=== PATIENT | male | born 1995 | race Caucasian/White ===

== ENCOUNTER 2018-12-01 01:54 | Emergency (ER) | payer OTHER ==
--- NOTE | 2018-12-01 02:10 | ER Report ---
History and Physical Time Seen By MD: 02:04 Hx. of Stated Complaint: THREW UP A LOT OF BLOOD. HAS BEEN DRINKING. SAME THING HAPPENED A WEEK OR SO AGO AND ONCE IN [place]. EVERYTIME HE HAS BEEN DRINKING HPI/ROS CHIEF COMPLAINT: Hematemesis and epigastric pain HISTORY OF PRESENT ILLNESS: This is a 23-year-old male. He has been drinking heavily throughout the weekend. Came in because he was worried about throwing up a large amount of bright red blood tonight. This is happened on 2 other occasions when he has been drinking. One a few years ago, the last a few weeks ago. This seemed worse than usual. The others were not associated with pain that he remembers. He does state that he does drink heavily on the weekends and has an alcohol problem. No known history of ulcer disease and has not had this worked up. States that his mother who is a nurse practitioner has been recommending that he see a doctor for this. He denies any fevers or chills. No change in his stools with diarrhea, constipation, melena or blood in the stools. He has had normal urination without any blood in the urine. He does have significant acid reflux which seems to come and go but has not taken any medication for this as of yet. Allergies: Coded Allergies: No Known Drug Allergies (Unverified , 12/01/18) Home Meds Active Scripts Sucralfate (CARAFATE) 1 Gm Tablet, 1 GM PO QID, #120 TAB 0 Refills Prov:YARELIS BUCK MD 12/01/18 Reviewed Nurses Notes: Yes Hx Substance Use Disorder: No Hx Alcohol Use: Yes (SOCIAL) Constitutional Vital Sign - Last 24 Hours 12/01/18 12/01/18 12/01/18 12/01/18 01:54 01:58 01:58 02:00 Temp 98.3 Pulse ??? 142 Resp 20 B/P (MAP) 183/111 (135) 172/114 172/114 (133) Pulse Ox 97 O2 Delivery Room Air 12/01/18 12/01/18 12/01/18 12/01/18 02:09 02:24 02:30 02:39 Pulse 131 117 119 Resp 15 12 B/P (MAP) 146/114 (125) Pulse Ox 94 87 12/01/18 12/01/18 12/01/1812/01/19 02:54 03:00 03:09 03:14 Pulse 112 113 117 Resp 9 14 11 B/P (MAP) ???/??? (1665) Pulse Ox 92 94 12/01/18 12/01/18 12/01/18 12/01/18 03:44 03:59 04:00 04:14 Pulse ? B/P (MAP) ???/??? (1665) 12/01/18 12/01/18 12/01/18 04:29 04:36 04:44 Pulse ? B/P (MAP) 135/98 (110) Intake and Output 11/30/18 11/30/18 12/01/18 15:00 23:00 07:00 Intake Total 1000 ml Balance 1000 ml Physical Exam General Appearance: The patient is alert. He is intoxicated, very aches use. He is tachycardic. Blood pressure is elevated as well. Eyes: Pupils are equal, round. Reactive to light. No pallor, injection or icterus. Extraocular movements are intact. ENT: Mucous membranes are moist. Normal oral mucosa. Posterior oropharynx is normal. No sign of bleeding in the oropharynx. Neck: Supple and non tender. No lymphadenopathy. Respiratory: Lungs are clear to auscultation. Cardiovascular: Tachycardia but appears a regular sinus tachycardia. No murmurs, gallops or rubs. Normal capillary refill. Gastrointestinal: Abdomen is soft, he has tenderness in the epigastric area. Nondistended. No rebound or guarding. No masses or organomegaly. Normal active bowel sounds. No costovertebral angle tenderness with percussion. Neurological: Alert and oriented x3. No focal neurologic deficits other than the intoxication Skin: Warm and dry. No rashes. No bruising. Musculoskeletal: No tenderness in palpation of the back and spine DIFFERENTIAL DIAGNOSIS: After history and physical exam, differential diagnosis was considered for patient with hematemesis, 2 prior episodes, all of alcohol use, suspect likely gastritis versus ulcer disease. Medical Decision Making Data Points Result Diagram: 12/01/18 0333 12/01/18 0207 Laboratory Hematology Test 12/01/18 00:00 12/01/18 02:07 12/01/18 03:33 Helicobacter pylori IgG Antibody Negative (NEGATIVE) Prothrombin Time 12.1 seconds (12.0-14.4) Prothromb Time International Ratio 0.90 Activated Partial Thromboplast Time 30 seconds (23-35) Sodium Level 146 mmol/L (137-145) Potassium Level 3.9 mmol/L (3.5-5.0) Chloride Level 102 mmol/L (98-107) Carbon Dioxide Level 26 mmol/L (22-30) Blood Urea Nitrogen 14 mg/dl (9-21) Creatinine 1.00 mg/dl (0.66-1.25) Glomerular Filtration Rate Calc > 60.0 Random Glucose 103 mg/dl (75-110) Calcium Level 10.0 mg/dl (8.4-10.2) Total Bilirubin 0.7 mg/dl (0.2-1.3) Aspartate Amino Transf (AST/SGOT) 57 U/L (0-35) Alanine Aminotransferase (ALT/SGPT) 77 U/L (0-56) Alkaline Phosphatase 109 U/L (0-126) Total Protein 9.5 g/dl (6.3-8.2) Albumin 5.7 g/dl (3.5-5.0) Red Blood Count 5.83 M/uL (4.00-5.60) Mean Corpuscular Volume 86.7 fL (80.0-96.0) Mean Corpuscular Hemoglobin 30.2 pg (26.0-33.0) Mean Corpuscular Hemoglobin Concent 34.8 g/dL (32.0-36.0) Red Cell Distribution Width 12.9 % (11.5-14.5) Mean Platelet Volume 7.8 fL (7.2-11.1) Neutrophils (%) (Auto) 42.2 % (39.4-72.5) Lymphocytes (%) (Auto) 44.4 % (17.6-49.6) Monocytes (%) (Auto) 9.3 % (4.1-12.4) Eosinophils (%) (Auto) 3.4 % (0.4-6.7) Basophils (%) (Auto) 0.7 % (0.3-1.4) Nucleated RBC Relative Count (auto) 0.2 /100WBC Neutrophils # (Auto) 2.4 K/uL (2.0-7.4) Lymphocytes # (Auto) 2.5 K/uL (1.3-3.6) Monocytes # (Auto) 0.5 K/uL (0.3-1.0) Eosinophils # (Auto) 0.2 K/uL (0.0-0.5) Basophils # (Auto) 0.0 K/uL (0.0-0.1) Nucleated RBC Absolute Count (auto) 0.01 K/uL Amylase Level 48 U/L (0-110) Lipase 145 U/L (23-300) Chemistry Test 12/01/18 00:00 12/01/18 02:07 12/01/18 03:33 Helicobacter pylori IgG Antibody Negative (NEGATIVE) Prothrombin Time 12.1 seconds (12.0-14.4) Prothromb Time International Ratio 0.90 Activated Partial Thromboplast Time 30 seconds (23-35) Glomerular Filtration Rate Calc > 60.0 Calcium Level 10.0 mg/dl (8.4-10.2) Total Bilirubin 0.7 mg/dl (0.2-1.3) Aspartate Amino Transf (AST/SGOT) 57 U/L (0-35) Alanine Aminotransferase (ALT/SGPT) 77 U/L (0-56) Alkaline Phosphatase 109 U/L (0-126) Total Protein 9.5 g/dl (6.3-8.2) Albumin 5.7 g/dl (3.5-5.0) White Blood Count 5.7 k/uL (4.5-11.0) Red Blood Count 5.83 M/uL (4.00-5.60) Hemoglobin 17.6 g/dL (14.0-18.0) Hematocrit 50.6 % (42.0-52.0) Mean Corpuscular Volume 86.7 fL (80.0-96.0) Mean Corpuscular Hemoglobin 30.2 pg (26.0-33.0) Mean Corpuscular Hemoglobin Concent 34.8 g/dL (32.0-36.0) Red Cell Distribution Width 12.9 % (11.5-14.5) Platelet Count 306 K/uL (150-450) Mean Platelet Volume 7.8 fL (7.2-11.1) Neutrophils (%) (Auto) 42.2 % (39.4-72.5) Lymphocytes (%) (Auto) 44.4 % (17.6-49.6) Monocytes (%) (Auto) 9.3 % (4.1-12.4) Eosinophils (%) (Auto) 3.4 % (0.4-6.7) Basophils (%) (Auto) 0.7 % (0.3-1.4) Nucleated RBC Relative Count (auto) 0.2 /100WBC Neutrophils # (Auto) 2.4 K/uL (2.0-7.4) Lymphocytes # (Auto) 2.5 K/uL (1.3-3.6) Monocytes # (Auto) 0.5 K/uL (0.3-1.0) Eosinophils # (Auto) 0.2 K/uL (0.0-0.5) Basophils # (Auto) 0.0 K/uL (0.0-0.1) Nucleated RBC Absolute Count (auto) 0.01 K/uL Amylase Level 48 U/L (0-110) Lipase 145 U/L (23-300) Coagulation Test 12/01/18 02:07 Prothrombin Time 12.1 seconds Prothromb Time International Ratio 0.90 Activated Partial Thromboplast Time 30 seconds ED Course/Re-evaluation Clinical Indication for ER IV: Hydration, IV Access ED Course Patient is admitted IV started. Given Protonix fluids and Zofran. [place] much better. No further vomiting. Labs unremarkable. Discussed with him that this likely represents gastritis or ulcer disease exacerbated by alcohol use. Recommended stopping alcohol use and following up with someone who could do an upper endoscopy. Starting on Carafate and continue omeprazole. Decision to Disposition Date: Dec 01, 2018 Decision to Disposition Time: 04:31 Depart Departure Latest Vital Signs Vital Signs Date Time Temp Pulse Resp B/P (MAP) Pulse Ox O2 Delivery O2 Flow Rate FiO2 12/01/18 04:44 ??? 12/01/18 04:36 135/98 (110) 12/01/18 03:14 11 94 12/01/18 01:58 98.3 Room Air Impression: Primary Impression: Upper GI bleed Additional Impression: Gastritis Condition: Improved Disposition: HOME OR SELF-CARE Referrals: NISHA BUTLER MD New Scripts Sucralfate (CARAFATE) 1 Gm Tablet 1 GM PO QID, #120 TAB 0 Refills Prov: YARELIS BUCK MD 12/01/18 Patient Instructions: Diet for Stomach Ulcers and Gastritis (ED), Gastritis (ED) Additional Instructions: Your bleeding is from either Gastritis (inflammation in the stomach) or ulcer disease. These can both be severely exacerbated by alcohol use. Start Omeprazole 20mg twice a day until you follow-up. This medicine reduces stomach acid. Take Carafate 1gram tablets four times a day. This medicine helps to coat the stomach and help the tissue heal. We recommend stopping alcohol use until you follow-up with one of the general surgeons in [facility] who can perform an upper endoscopy. (Dr. Butler or Dr. Charles) See the attached information about diet for stomach ulcers or gastritis. Problem Qualifiers Additional Impression: Gastritis Gastritis type: alcoholic Chronicity: acute Gastritis bleeding: with bleeding Qualified Codes: K29.21 - Alcoholic gastritis with bleeding YARELIS BUCK MD Dec 01, 2018 02:10
[2018-12-01] MEDS ORDERED: ONDANSETRON 4 MG/2 ML VIAL IVP ONE (02:20)
[2018-12-01] MEDS ORDERED: NS(*) 0.9% 1000 ML BAG 1,000 ML IV ONE ×2 (02:20→03:25)
[2018-12-01] MEDS ORDERED: PANTOPRAZOLE SOD 40 MG IV VIAL IVP ONE (02:20)
[2018-12-01 02:38] LABS: INR 0.9
[2018-12-01 03:56] LABS: PLATELET COUNT, AUTOMATED 306 K/uL (150-450)
[2018-12-01] MEDS ORDERED: SUCR1TAB85 PO (04:33)
[2018-12-01] MEDS ORDERED: SUCRALFATE 1 GM TAB PO ONE (04:35)
[2018-12-01 04:36] VITALS: BP 135/98
== END 2018-12-01 04:38 | disposition home or self-care (01) ==
LOC: ER 02:26
DX: K29.21 Alcoholic gastritis with bleeding (principal)
CPT/HCPCS: 82150; 83690; 85025; 85610; 85730; 86677; 96361; 96374; 96375; 99284; C9113; J2405; J7030; 82040; 82247; 82310; 82374; 82435; 82565; 82947; 84075; 84132; 84155; 84295; 84450; 84460; 84520

== ENCOUNTER → 2019-01-13 | Outpatient (CLI) | payer OTHER ==
[~2019-01-13] MED LIST: SUCR1TAB85 PO
--- NOTE | 2019-01-13 11:16 | RADIOLOGY IMAGING REPORT ---
FACILITY: [facility] PATIENT NAME: Heriberto Wilkins : 1995 MR: [id number] V: [id number] EXAM DATE: ORDERING PHYSICIAN: [facility] TECHNOLOGIST: Location: [facility] Patient: Heriberto Wilkins : 1995 Visit/Account:[id number] Date of Sevice: 01/13/2019 TESTICULAR HISTORY: Left inferior testicular pain times several weeks COMPARISON: None. FINDINGS: Testes: The right testicle measures 3.9 x 2.2 x 2.7 cm The left testicle measures 3.8 x 2.2 x 2.9 cm. In the inferior pole of the left testicle there is an irregular polylobulated hypoechoic mass measuring 1.9 x 1.2 x 1.8 cm which is concerning for a neopl asm. Microlithiasis is noted in both testes left more so than right Symmetric and unremarkable blood flow documented by color and Duplex Doppler ultrasound. Epididymides: The head the epididymis on the right is prominent slightly heterogeneous measuring 1.3 x 1.4 x 2 cm. The head epididymis on the left measures 0.8 x 1 x 1.2 cm. In the tail of the epididy mis on the left there is a 1.14 x 0.9 x 1.1 cm hypoechoic mass Blood flow is unremarkable in each ep ididymis by color Doppler ultrasound. Hydrocele: None. Varicocele: None. IMPRESSION: There is a 1.9 x 1.2 x 1.8 cm polylobular hypoechoic mass inferior pole the left testicle which is ex tremely concerning for malignancy The head epididymis on the right is a prominent slightly heterogeneous. This could be related to an infectious/inflammatory process although clinical correlation needed There is a 1.1 x 0.9 x 1.1 cm hypoechoic mass in the tail the epididymis on the left. Results were called to Dr. Brandon Ojeda's (nurse practitioner [place] at 01/13/2019 10:59 AM. Report Dictated By: Lisseth Huerta MD at 01/13/2019 10:41 AM Report E-Signed By: Lisseth Huerta MD at 01/13/2019 11:01 AM WSN:[email or web address]
== END ==
LOC: US 01:20
DX: N50.89 Other specified disorders of the male genital organs (principal)
CPT/HCPCS: 76870